=== PATIENT | male | born 1950 | race African-American/Black ===

== ENCOUNTER 2018-03-07 19:19 | Inpatient (IN) | payer MEDICARE, MEDICAID ==
[~2018-03-07] VITALS: Ht 167.6 cm; Wt 66.2 kg
[2018-03-07] MEDS ORDERED: OLANZAPINE 10 MG VIAL IM ONE ×2 (19:30→19:48)
[2018-03-07 20:08] LABS: BASOPHILS % (AUTO) 0.2 % (0.0-2.0); EOSINOPHILS % (AUTO) 0.7 % (0.0-6.0); HEMATOCRIT 44 % (39-51); HEMOGLOBIN 14.7 g/dL (13.5-17.5); LYMPHOCYTES # (AUTO) 2.4 /CMM (0.8-4.8); LYMPHOCYTES % (AUTO) 26.3 % (20.0-44.0); MEAN CORPUSCULAR HEMOGLOBIN 31 PG (26.0-33.0); MEAN CORPUSCULAR HGB CONC 34 g/dl (31.0-36.0); MEAN CORPUSCULAR VOLUME 91 fL (80-96); MONOCYTES # (AUTO) 0.5 /CMM (0.1-1.30); MONOCYTES % (AUTO) 5.6 % (2.0-12.0); NEUTROPHILS # (AUTO) 6.1 /CMM (1.8-8.9); NEUTROPHILS % (AUTO) 67.2 % (43.0-81.0); PLATELET COUNT (AUTO) 237 /CMM (150-450); RDW COEFFICIENT OF VARIATION 13.5 (11.5-15.0); RED BLOOD CELL COUNT(AUTO) 4.82 MIL/uL (4.5-6.0); WHITE BLOOD COUNT (AUTO) 9.1 K/uL (4.3-11.0)
[2018-03-07 20:10] LABS: APPEARANCE,URINE Slightly Cloudy (CLEAR); BILIRUBIN,URINE Negative (NEGATIVE); BLOOD, URINE Large Ery/uL (NEGATIVE); COLOR,URINE Yellow (YELLOW); KETONES,URINE Trace (NEGATIVE); LEUKOCYTE ESTERASE ,URINE Moderate (NEGATIVE); NITRITE, URINE Negative (NEGATIVE); PH,URINE 5.5 (5.0-8.0); PROTEIN,URINE 30 mg/dl (NEGATIVE); UGLUCOSE Negative (NEGATIVE)
[2018-03-07 20:15] LABS: CALCIUM, SERUM 9.9 mg/dL (8.5-10.1); CARBON DIOXIDE 24 mmol/L (21-32); CHLORIDE 105 mmol/L (98-107); CREATININE 0.9 mg/dL (0.6-1.3); GLUCOSE 105 mg/dL (74-106); POTASSIUM 4.1 mmol/L (3.5-5.1); SODIUM SERUM 135 mmol/L (136-145); UREA NITROGEN, BLOOD 13 mg/dL (7-18)
[2018-03-07 20:21] LABS: ALANINE AMINOTRANSFERASE 13 U/L (12-78); ALBUMIN 3.4 g/dL (3.4-5.0); ALKALINE PHOSPHATASE 106 U/L (46-116); ASPARTATE AMINOTRANSFERASE 13 U/L (15-37); BILIRUBIN,DIRECT 0.1 mg/dL (0.0-0.2); BILIRUBIN,TOTAL 0.3 mg/dL (0.2-1.0); TOTAL PROTEIN, SERUM 7.9 g/dL (6.4-8.2)
[2018-03-07 20:23] LABS: ACETAMINOPHEN 0 ug/ml (10-30); ALCOHOL, BLOOD < 3 mg/dL (0-0); SALICYLATE 1.7 mg/dL (2.8-20.0)
[2018-03-07 20:27] LABS: WBC,URINE 21-50 /HPF (0-3)
[2018-03-07 20:28] LABS: BACTERIA,URINE Few /HPF (None Seen); RBC,URINE 21-50 /HPF (0-2); SQUAMOUS EPITHELIAL CELL,UR Few /HPF (None Seen)
[2018-03-07] MEDS ORDERED: CEPHALEXIN MONOHYDRATE 500 MG CAPSULE PO ONE ×2 (21:00→21:49)
[2018-03-07 22:30] VITALS: BP 149/99
[2018-03-07] MEDS ORDERED: MAGNESIUM HYDROXIDE 30 ML UDC PO PRN (23:00)
[2018-03-07] MEDS ORDERED: MAG HYDROX/AL HYDROX/SIMETH 30 ML UDC PO PRN (23:00)
[2018-03-07] MEDS ORDERED: ACETAMINOPHEN 325 MG TABLET PO PRN (23:00)
[2018-03-07] MEDS ORDERED: LORAZEPAM 0.5 MG TABLET PO PRN (23:00)
[2018-03-08 00:05] VITALS: BP 147/99
[2018-03-08] MEDS ORDERED: MULT1TAB73 PO (00:27)
[2018-03-08] MEDS ORDERED: ASPI-605 PO (00:27)
[2018-03-08] MEDS ORDERED: DOCU100C36 PO (00:27)
[2018-03-08] MEDS ORDERED: SENN-167 PO (00:27)
[2018-03-08] MEDS ORDERED: ATOR10TA PO (00:27)
[2018-03-08] MEDS ORDERED: AMLO5TAB2 PO (00:27)
[2018-03-08] MEDS ORDERED: DONE10TA11 PO (00:27)
[2018-03-08] MEDS ORDERED: ASCO500C18 PO (00:27)
[2018-03-08] MEDS ORDERED: MEMA5TAB PO (00:38)
[2018-03-08] MEDS: CEPHALEXIN MONOHYDRATE 250 MG CAPSULE PO SCH ×3 (05:00→20:01)
[2018-03-08] MEDS: ASPIRIN EC 81 MG TABLET.DR PO SCH (09:00)
[2018-03-08] MEDS: AMLODIPINE BESYLATE 5 MG TABLET PO SCH (09:00)
[2018-03-08] MEDS: DOCUSATE SODIUM 100 MG CAPSULE PO SCH ×2 (09:00→16:45)
[2018-03-08 16:00] VITALS: BP 103/73
[2018-03-08] MEDS ORDERED: HALOPERIDOL LACTATE INJ 5 MG/ML VIAL IM ONE (18:00)
[2018-03-08] MEDS: BENZTROPINE MESYLATE (1 MG) 1 MG TABLET PO SCH (18:00)
[2018-03-08] MEDS: HALOPERIDOL 5 MG TABLET PO SCH (19:54)
[2018-03-08] MEDS: diphenhydrAMINE HCL 50 MG/ML VIAL IM SCH (20:00)
[2018-03-08] MEDS: ATORVASTATIN 10 MG TABLET PO SCH (22:26)
[2018-03-08] MEDS: SENNOSIDES 8.6 MG TABLET PO SCH (22:27)
[2018-03-09] MEDS: CEPHALEXIN MONOHYDRATE 250 MG CAPSULE PO SCH ×4 (05:16→21:00)
[2018-03-09] MEDS ORDERED: CEPHALEXIN MONOHYDRATE 250 MG CAPSULE PO ONE (05:23)
[2018-03-09] MEDS: DOCUSATE SODIUM 100 MG CAPSULE PO SCH ×2 (09:00→17:51)
[2018-03-09] MEDS: DIVALPROEX SODIUM 250 MG TABLET.DR PO SCH ×3 (09:00→17:51)
[2018-03-09] MEDS: BENZTROPINE MESYLATE (1 MG) 1 MG TABLET PO SCH ×3 (09:00→17:51)
[2018-03-09] MEDS: AMLODIPINE BESYLATE 5 MG TABLET PO SCH (09:00)
[2018-03-09] MEDS: ASPIRIN EC 81 MG TABLET.DR PO SCH (09:00)
[2018-03-09] MEDS: HALOPERIDOL 5 MG TABLET PO SCH ×3 (09:00→17:51)
[2018-03-09] MEDS: diphenhydrAMINE HCL 50 MG/ML VIAL IM SCH ×3 (09:54→17:00)
[2018-03-09 19:59] VITALS: BP 90/51
[2018-03-09 20:00] VITALS: BP 90/51
[2018-03-09] MEDS: SENNOSIDES 8.6 MG TABLET PO SCH (21:51)
[2018-03-09] MEDS: ATORVASTATIN 10 MG TABLET PO SCH (21:51)
[2018-03-10] MEDS: CEPHALEXIN MONOHYDRATE 250 MG CAPSULE PO SCH ×3 (05:00→21:22)
[2018-03-10 08:00] VITALS: BP 90/65
[2018-03-10] MEDS: DOCUSATE SODIUM 100 MG CAPSULE PO SCH ×2 (09:00→17:00)
[2018-03-10] MEDS: AMLODIPINE BESYLATE 5 MG TABLET PO SCH (09:00)
[2018-03-10] MEDS: BENZTROPINE MESYLATE (1 MG) 1 MG TABLET PO SCH ×3 (09:00→17:00)
[2018-03-10] MEDS: DIVALPROEX SODIUM 250 MG TABLET.DR PO SCH ×3 (09:00→17:00)
[2018-03-10] MEDS: HALOPERIDOL 5 MG TABLET PO SCH ×3 (09:00→17:00)
[2018-03-10] MEDS: ASPIRIN EC 81 MG TABLET.DR PO SCH (09:00)
[2018-03-10] MEDS: diphenhydrAMINE HCL 50 MG/ML VIAL IM SCH ×3 (10:13→17:27)
[2018-03-10 16:00] VITALS: BP 99/59
[2018-03-10 20:57] VITALS: BP 130/71
[2018-03-10] MEDS: ATORVASTATIN 10 MG TABLET PO SCH (21:22)
[2018-03-10] MEDS: SENNOSIDES 8.6 MG TABLET PO SCH (21:23)
[2018-03-11] MEDS: CEPHALEXIN MONOHYDRATE 250 MG CAPSULE PO SCH ×3 (04:55→21:00)
[2018-03-11 08:00] VITALS: BP 108/70
[2018-03-11] MEDS: HALOPERIDOL 5 MG TABLET PO SCH ×3 (08:43→21:11)
[2018-03-11] MEDS: DOCUSATE SODIUM 100 MG CAPSULE PO SCH ×2 (08:43→16:40)
[2018-03-11] MEDS: ASPIRIN EC 81 MG TABLET.DR PO SCH (08:43)
[2018-03-11] MEDS: AMLODIPINE BESYLATE 5 MG TABLET PO SCH (08:43)
[2018-03-11] MEDS: BENZTROPINE MESYLATE (1 MG) 1 MG TABLET PO SCH ×3 (08:43→16:40)
[2018-03-11] MEDS: diphenhydrAMINE HCL 50 MG/ML VIAL IM SCH ×3 (09:00→16:41)
[2018-03-11] MEDS: DIVALPROEX SODIUM 250 MG TABLET.DR PO SCH ×3 (09:05→16:40)
[2018-03-11 16:00] VITALS: BP 110/70
[2018-03-11 20:18] VITALS: BP 107/49
[2018-03-11] MEDS: ATORVASTATIN 10 MG TABLET PO SCH (21:12)
[2018-03-11] MEDS: SENNOSIDES 8.6 MG TABLET PO SCH (21:12)
[2018-03-12] MEDS: CEPHALEXIN MONOHYDRATE 250 MG CAPSULE PO SCH ×3 (05:00→21:03)
[2018-03-12 07:43] LABS: BASOPHILS % (AUTO) 0.3 % (0.0-2.0); EOSINOPHILS % (AUTO) 2.1 % (0.0-6.0); HEMATOCRIT 49 % (39-51); HEMOGLOBIN 16.5 g/dL (13.5-17.5); LYMPHOCYTES # (AUTO) 2.9 /CMM (0.8-4.8); LYMPHOCYTES % (AUTO) 31.1 % (20.0-44.0); MEAN CORPUSCULAR HEMOGLOBIN 32 PG (26.0-33.0); MEAN CORPUSCULAR HGB CONC 34 g/dl (31.0-36.0); MEAN CORPUSCULAR VOLUME 94 fL (80-96); MONOCYTES # (AUTO) 0.5 /CMM (0.1-1.30); MONOCYTES % (AUTO) 5.7 % (2.0-12.0); NEUTROPHILS # (AUTO) 5.8 /CMM (1.8-8.9); NEUTROPHILS % (AUTO) 60.8 % (43.0-81.0); PLATELET COUNT (AUTO) 160 /CMM (150-450); RDW COEFFICIENT OF VARIATION 14.2 (11.5-15.0); RED BLOOD CELL COUNT(AUTO) 5.24 MIL/uL (4.5-6.0); WHITE BLOOD COUNT (AUTO) 9.5 K/uL (4.3-11.0)
[2018-03-12 07:46] LABS: CALCIUM, SERUM 9.3 mg/dL (8.5-10.1); CREATININE 0.7 mg/dL (0.6-1.3); POTASSIUM 4.5 mmol/L (3.5-5.1)
[2018-03-12 08:00] VITALS: BP 98/71
[2018-03-12] MEDS: HALOPERIDOL 5 MG TABLET PO SCH ×4 (09:00→21:03)
[2018-03-12] MEDS: AMLODIPINE BESYLATE 5 MG TABLET PO SCH (09:00)
[2018-03-12] MEDS: DIVALPROEX SODIUM 250 MG TABLET.DR PO SCH ×3 (09:00→17:03)
[2018-03-12] MEDS: diphenhydrAMINE HCL 50 MG/ML VIAL IM SCH ×3 (09:00→17:00)
[2018-03-12] MEDS: DOCUSATE SODIUM 100 MG CAPSULE PO SCH ×2 (09:00→17:03)
[2018-03-12] MEDS: BENZTROPINE MESYLATE (1 MG) 1 MG TABLET PO SCH ×3 (09:04→17:03)
[2018-03-12] MEDS: ASPIRIN EC 81 MG TABLET.DR PO SCH (09:04)
[2018-03-12 16:00] VITALS: BP 110/59
[2018-03-12 19:32] VITALS: BP 133/52
[2018-03-12] MEDS: SENNOSIDES 8.6 MG TABLET PO SCH (21:03)
[2018-03-12] MEDS: ATORVASTATIN 10 MG TABLET PO SCH (21:03)
[2018-03-13] MEDS: CEPHALEXIN MONOHYDRATE 250 MG CAPSULE PO SCH ×3 (05:33→21:28)
[2018-03-13 08:27] VITALS: BP 101/61
[2018-03-13] MEDS: HALOPERIDOL 5 MG TABLET PO SCH ×3 (08:56→21:28)
[2018-03-13] MEDS: ASPIRIN EC 81 MG TABLET.DR PO SCH (08:56)
[2018-03-13] MEDS: BENZTROPINE MESYLATE (1 MG) 1 MG TABLET PO SCH ×3 (08:56→16:53)
[2018-03-13] MEDS: DIVALPROEX SODIUM 250 MG TABLET.DR PO SCH ×3 (08:56→16:53)
[2018-03-13] MEDS: DOCUSATE SODIUM 100 MG CAPSULE PO SCH ×2 (08:56→16:53)
[2018-03-13] MEDS: AMLODIPINE BESYLATE 5 MG TABLET PO SCH (08:57)
[2018-03-13] MEDS: diphenhydrAMINE HCL 50 MG/ML VIAL IM SCH ×3 (09:00→17:00)
[2018-03-13 16:32] VITALS: BP 97/57
[2018-03-13 20:00] VITALS: BP 108/69
[2018-03-13] MEDS: ATORVASTATIN 10 MG TABLET PO SCH (21:28)
[2018-03-13] MEDS: SENNOSIDES 8.6 MG TABLET PO SCH (21:28)
[2018-03-14 08:00] VITALS: BP 100/59
[2018-03-14] MEDS: DIVALPROEX SODIUM 250 MG TABLET.DR PO SCH ×3 (08:24→16:20)
[2018-03-14] MEDS: AMLODIPINE BESYLATE 5 MG TABLET PO SCH (08:24)
[2018-03-14] MEDS: HALOPERIDOL 5 MG TABLET PO SCH ×3 (08:24→21:23)
[2018-03-14] MEDS: DOCUSATE SODIUM 100 MG CAPSULE PO SCH ×2 (08:24→16:20)
[2018-03-14] MEDS: ASPIRIN EC 81 MG TABLET.DR PO SCH (08:24)
[2018-03-14] MEDS: BENZTROPINE MESYLATE (1 MG) 1 MG TABLET PO SCH ×3 (08:24→16:20)
[2018-03-14] MEDS: diphenhydrAMINE HCL 50 MG/ML VIAL IM SCH ×3 (08:28→16:23)
[2018-03-14] MEDS ORDERED: HALOPERIDOL LACTATE INJ 5 MG/ML VIAL IM PRN (09:00)
[2018-03-14 16:00] VITALS: BP 106/67
[2018-03-14 20:00] VITALS: BP 111/62
[2018-03-14] MEDS: SENNOSIDES 8.6 MG TABLET PO SCH (21:23)
[2018-03-14] MEDS: ATORVASTATIN 10 MG TABLET PO SCH (21:23)
[2018-03-14] MEDS: TEMAZEPAM 7.5 MG CAPSULE PO PRN (21:24)
[2018-03-15 08:00] VITALS: BP 103/63
[2018-03-15] MEDS: BENZTROPINE MESYLATE (1 MG) 1 MG TABLET PO SCH ×3 (08:39→17:32)
[2018-03-15] MEDS: DIVALPROEX SODIUM 250 MG TABLET.DR PO SCH ×3 (08:39→17:32)
[2018-03-15] MEDS: HALOPERIDOL 5 MG TABLET PO SCH ×3 (08:39→21:58)
[2018-03-15] MEDS: ASPIRIN EC 81 MG TABLET.DR PO SCH (08:39)
[2018-03-15] MEDS: AMLODIPINE BESYLATE 5 MG TABLET PO SCH (08:40)
[2018-03-15] MEDS: DOCUSATE SODIUM 100 MG CAPSULE PO SCH ×2 (08:40→17:33)
[2018-03-15] MEDS: diphenhydrAMINE HCL 50 MG/ML VIAL IM SCH ×3 (08:42→17:00)
[2018-03-15 16:01] VITALS: BP 105/61
[2018-03-15 20:00] VITALS: BP 107/58
[2018-03-15] MEDS: SENNOSIDES 8.6 MG TABLET PO SCH (21:58)
[2018-03-15] MEDS: TEMAZEPAM 7.5 MG CAPSULE PO PRN (21:59)
[2018-03-15] MEDS: ATORVASTATIN 10 MG TABLET PO SCH (21:59)
[2018-03-16 08:00] VITALS: BP 100/69
[2018-03-16] MEDS: AMLODIPINE BESYLATE 5 MG TABLET PO SCH (09:00)
[2018-03-16] MEDS: DOCUSATE SODIUM 100 MG CAPSULE PO SCH ×2 (09:00→17:30)
[2018-03-16] MEDS: diphenhydrAMINE HCL 50 MG/ML VIAL IM SCH ×3 (09:00→17:00)
[2018-03-16] MEDS: HALOPERIDOL 5 MG TABLET PO SCH ×3 (09:38→21:36)
[2018-03-16] MEDS: ASPIRIN EC 81 MG TABLET.DR PO SCH (09:39)
[2018-03-16] MEDS: DIVALPROEX SODIUM 250 MG TABLET.DR PO SCH ×3 (09:39→17:30)
[2018-03-16] MEDS: BENZTROPINE MESYLATE (1 MG) 1 MG TABLET PO SCH ×3 (09:39→17:30)
[2018-03-16 16:00] VITALS: BP 100/55
[2018-03-16 19:54] VITALS: BP 121/54
[2018-03-16] MEDS: SENNOSIDES 8.6 MG TABLET PO SCH (21:35)
[2018-03-16] MEDS: ATORVASTATIN 10 MG TABLET PO SCH (21:36)
[2018-03-16 23:00] VITALS: BP 114/61
[2018-03-17 08:00] VITALS: BP 106/55
[2018-03-17] MEDS: BENZTROPINE MESYLATE (1 MG) 1 MG TABLET PO SCH ×3 (08:37→16:52)
[2018-03-17] MEDS: DOCUSATE SODIUM 100 MG CAPSULE PO SCH ×2 (08:38→16:52)
[2018-03-17] MEDS: ASPIRIN EC 81 MG TABLET.DR PO SCH (08:38)
[2018-03-17] MEDS: AMLODIPINE BESYLATE 5 MG TABLET PO SCH (08:38)
[2018-03-17] MEDS: HALOPERIDOL 5 MG TABLET PO SCH ×3 (08:38→21:25)
[2018-03-17] MEDS: DIVALPROEX SODIUM 250 MG TABLET.DR PO SCH ×3 (08:38→16:53)
[2018-03-17] MEDS: diphenhydrAMINE HCL 50 MG/ML VIAL IM SCH ×3 (08:41→16:53)
[2018-03-17 16:00] VITALS: BP 117/58
[2018-03-17 20:09] VITALS: BP 133/63
[2018-03-17] MEDS: ATORVASTATIN 10 MG TABLET PO SCH (21:25)
[2018-03-17] MEDS: SENNOSIDES 8.6 MG TABLET PO SCH (21:25)
[2018-03-18 08:00] VITALS: BP 101/57
[2018-03-18] MEDS: HALOPERIDOL 5 MG TABLET PO SCH ×3 (08:37→22:00)
[2018-03-18] MEDS: DIVALPROEX SODIUM 250 MG TABLET.DR PO SCH ×3 (08:37→18:00)
[2018-03-18] MEDS: ASPIRIN EC 81 MG TABLET.DR PO SCH (08:37)
[2018-03-18] MEDS: AMLODIPINE BESYLATE 5 MG TABLET PO SCH (08:37)
[2018-03-18] MEDS: DOCUSATE SODIUM 100 MG CAPSULE PO SCH ×2 (08:37→18:00)
[2018-03-18] MEDS: BENZTROPINE MESYLATE (1 MG) 1 MG TABLET PO SCH ×3 (08:37→18:00)
[2018-03-18] MEDS: diphenhydrAMINE HCL 50 MG/ML VIAL IM SCH ×3 (08:38→16:10)
[2018-03-18 16:00] VITALS: BP 97/59
[2018-03-18] MEDS: ATORVASTATIN 10 MG TABLET PO SCH (22:00)
[2018-03-18] MEDS: SENNOSIDES 8.6 MG TABLET PO SCH (22:00)
[2018-03-19 08:00] VITALS: BP 90/63
[2018-03-19 09:00] VITALS: BP 90/63
[2018-03-19] MEDS: diphenhydrAMINE HCL 50 MG/ML VIAL IM SCH (09:00)
[2018-03-19] MEDS: AMLODIPINE BESYLATE 5 MG TABLET PO SCH (09:00)
[2018-03-19] MEDS: DOCUSATE SODIUM 100 MG CAPSULE PO SCH (09:17)
[2018-03-19] MEDS: DIVALPROEX SODIUM 250 MG TABLET.DR PO SCH (09:17)
[2018-03-19] MEDS: ASPIRIN EC 81 MG TABLET.DR PO SCH (09:17)
[2018-03-19] MEDS: BENZTROPINE MESYLATE (1 MG) 1 MG TABLET PO SCH (09:17)
[2018-03-19] MEDS: HALOPERIDOL 5 MG TABLET PO SCH (09:17)
== END 2018-03-19 11:18 | DRG 885 ==
LOC: ER 19:21 → GPS 22:02 → GPSOV2 03-18 18:36
PROVIDERS: ADMIT Psychiatry & Neurology Psychiatry; ATTEND Psychiatry & Neurology Psychiatry
DX: F25.9 Schizoaffective disorder, unspecified (principal); N39.0 Urinary tract infection, site not specified; E78.5 Hyperlipidemia, unspecified; F03.90 Unspecified dementia, unspecified severity, without behavioral disturbance, psychotic disturbance, mood disturbance, and anxiety; I10 Essential (primary) hypertension; H02.402 Unspecified ptosis of left eyelid; Z79.82 Long term (current) use of aspirin; Z79.899 Other long term (current) drug therapy; F29 Unspecified psychosis not due to a substance or known physiological condition; Z73.6 Limitation of activities due to disability
CPT/HCPCS: 36415; 80048-TC; 80076-TC; 80164-TC; 80305; 81000-TC; 85025-TC; 87081-TC; 87086-TC; 97116-TC; 97530-TC; A4606; G0480; J1200; J3490; Z7610